=== PATIENT | female | born 1990 | race Caucasian/White ===

== ENCOUNTER 2018-10-18 09:22 | Emergency (ER) | payer MEDICAID, SELFPAY ==
[2018-10-18 09:34] VITALS: BP 102/69; PULSE 94; RESP 14; TEMP 36.7; O2SAT 98
--- NOTE | 2018-10-18 10:13 | ED.GENADUL_ITS ---
Discharge Plan Disposition Patient Disposition: HOME Condition: Stable Discharge Details Chief Complaint: Nk/Back Pain Clinical Impression: Viral syndrome Primary Care Provider: Natividad Kirkland ED Provider: Urvashi Richards Home Meds and New Rx's Prescriptions: Continued Ventolin HFA 200 PUFF HFA aerosol inhaler 2 puff Inhalation Q4H PRN PRNRF: 0 Discharge Instructions Instructions: Viral Syndrome (ED) Additional Instructions: Drink plenty of fluids and get plenty of rest. Alternate Tylenol and Motrin as needed and directed for pain. Follow-up with a primary care doctor in 1 week for reevaluation. Return immediately to the emergency department any worsening or new concerning symptoms. Stand Alone Forms: Work Release Discharge Data Discharge Date/Time-TO BE ENTERED AT DEPARTURE: 10/18/18 11:28 Discharge Physician: Urvashi Richards Medical Decision Making 28-year-old female with a history of asthma who presents with flulike symptoms for the past 3 days. Main complaint is body aches. Vitals within normal limits. Patient appears nontoxic and in no acute distress. No meningeal signs. No focal deficits. Normal ENT exam. Lungs clear to auscultation. Abdomen soft and nontender. States she is mainly concerned about the flu she has had many recent sick contacts. Will obtain a rapid influenza. No physical exam signs consistent with strep pharyngitis and I do not see any indication for rapid strep test. She again appears nontoxic, without fever or meningeal signs and with normal vitals, so I do not see any evidence of exam findings consistent with meningitis. 1100 --rapid influenza negative. Patient requests work note for today. Due to her viral symptoms, will give a work note to return Monday. Patient instructed on the importance of rest, fluids, Tylenol and Motrin. She is instructed to return here immediately if worse. Patient states she have menses due to history of endometrial ablation. Medical Records Medical records reviewed: Yes I reviewed the patient's medical records. Lab Data Lab results reviewed: Yes I reviewed the patient's lab results. Rapid influenza negative HPI General Mode of arrival: ambulatory . Date/Time Provider Initiated Documentation: 10/18/18 10:00 . Limitations to Documentation: no limitations . Information obtained by: patient . HPI Narrative: Patient is a 28-year-old female with history of asthma who presents with flulike symptoms for the past 3 days. States her symptoms started with sore throat, fatigue, dry cough, chest congestion, nausea, diarrhea, decreased appetite, intermittent bitemporal headache and mid to lower back pain 2 days ago, then left-sided neck pain started yesterday. Patient denies known fever, vomiting, chest pain, abdominal pain, urinary symptoms, rhinorrhea or ear pain. She has been taking Advil for her symptoms, with the last dose of 630 this morning. 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 States many people have tested positive for the flu. Patient states she did not receive a flu shot this year. Related Data Home Medications Medication Instructions Recorded Confirmed Ventolin HFA 2 puff INHALATION Q4H PRN PRN 11/24/17 10/18/18 Allergies Allergy/AdvReac Type Severity Reaction Status Date / Time No Known Allergies Allergy Unverified 10/18/18 09:42 General Stated Complaint: Nk/Back Pain CORRINA: 3 Review of Systems Review of Systems All systems reviewed & are unremarkable except as noted in HPI and below Constitutional Reports as per HPI, Denies chills and Denies fever(s) Eyes Denies blurry vision ENT Denies dizziness, Denies otalgia, Denies nasal congestion, Denies nasal discharge, Reports neck pain, Reports sore throat and Denies throat swelling Cardiovascular Denies chest pain and Denies dyspnea Respiratory Denies dyspnea Gastrointestinal Denies abdominal pain, Reports diarrhea, Reports nausea and Denies vomiting Genitourinary Denies hematuria and Denies dysuria Musculoskeletal Reports back pain, Reports neck pain and Denies numbness Integumentary/Breasts Denies lesions and Denies rash Neurologic Denies dizziness and Denies numbness Allergic/Immunologic Denies throat swelling [facility] Medical History Asthma (Chronic) Surgical History History of bilateral tubal ligation (Acute) History of endometrial ablation (Acute) H/O section (Chronic) Hx of cholecystectomy (Chronic) Social History Smoking/Tobacco Use Status: Current every day alcohol intake: current alcohol intake frequency: holidays/special occasions only substance use type: does not use Exam Const General: cooperative and healthy appearing Orientation: alert and awake HENMT Head: normal to inspection Ears: hearing grossly normal bilaterally, external ears normal and TM's normal bilaterally General nose exam: external nose normal Face and sinus: normal facial exam and sinuses nontender Mouth: oral mucosae normal Teeth and gingiva: dentition normal Throat: posterior oropharynx normal Eyes General: appearance normal, both eyes and all related structures Eyelids: eyelids normal Pupils: PERRL EOM: EOM intact bilaterally Neck Neck: normal visual inspection Lymphatic: no lymphadenopathy noted Chest Chest: normal inspection of the chest Resp Effort & Inspection: normal respiratory effort and able to speak in complete sentences Auscultation: clear to auscultation bilaterally Cardio Rate: regular rate Rhythm: regular rhythm GI Inspection: normal to inspection Palpation: soft, not firm, no guarding, no hepatosplenomegaly, no masses and nontender Auscultation: normal bowel sounds Back/Spine/Pelvis Back: no CVA tenderness Cervical Spine: cervical muscular tenderness (L sided) and No cervical spinal tenderness Thoracic/Lumbar Spine: No thoraco-lumbar spasm, No thoracic spinal tenderness and No lumbar spinal tenderness Skin General skin exam: no rashes or lesions noted Neuro General: alert, awake, moves all extremities, no meningeal signs and other (Negative Kernig's/Brudzinski's sign bilaterally) Cognition: normal cognition Speech: speech normal Gait: normal gait Motor: muscle tone normal throughout Sensory Exam: no sensory deficits noted Extrem General: normal to inspection, full ROM and normal capillary refill Psych Appearance: grossly normal Mental Status: mental status grossly normal Speech and Movement: speech and movement normal Affect: normal affect Thought Process: normal Course Vital Signs Temperature 98.1 F 10/18/18 09:34 Pulse 94 H 10/18/18 09:34 Respiratory Rate 14 10/18/18 09:34 Blood Pressure 102/69 10/18/18 09:34 Pulse Oximetry 98 10/18/18 09:34 Temperature 98.1 F 10/18/18 09:34 Temperature Source Skin 10/18/18 09:34 Pulse 94 H 10/18/18 09:34 Respiratory Rate 14 10/18/18 09:34 Respiratory Effort 10/18/18 09:43 Blood Pressure 102/69 10/18/18 09:34 Blood Pressure Position Sitting 10/18/18 09:34 Pulse Oximetry 98 10/18/18 09:34 Oxygen Delivery Method Room Air 10/18/18 09:34 Oxygen Flow Rate 0 10/18/18 09:34 Pain Level 6 10/18/18 09:34
== END 2018-10-18 11:28 | disposition home or self-care (01) ==
PROVIDERS: Emergency Provider Physician Assistant; PCP Nurse Practitioner Family
DX: B34.9 Viral infection, unspecified (principal); J45.909 Unspecified asthma, uncomplicated
CPT/HCPCS: 87449; 99282

== ENCOUNTER 2021-06-29 20:10 | Outpatient (REF) | payer SELFPAY ==
[2021-07-01 11:56] LABS: COVID-19 RT-PCR UVMMC Result Negative (Negative)
== END 2021-06-29 20:11 | disposition home or self-care (01) ==
LOC: NCHCN 20:10
PROVIDERS: PCP Nurse Practitioner Family; Visit Provider Physician Assistant
DX: J02.9 Acute pharyngitis, unspecified (principal); R05 Cough; Z20.822 Contact with and (suspected) exposure to COVID-19
CPT/HCPCS: U0003; 87070

== ENCOUNTER 2022-05-28 10:58 | Emergency (ER) | payer SELFPAY ==
[2022-05-28 11:05] VITALS: BP 133/95; PULSE 80; RESP 18; O2SAT 100
--- NOTE | 2022-05-28 12:00 | DI.RAD_ITS ---
Exam(s) XR FOOT LT COMPLETE EXAM: XR FOOT LT COMPLETE CLINICAL HISTORY: Plantar puncture wound TECHNIQUE: COMPARISON: CR LEFT FOOT COMPLETE from 10/31/2010 FINDINGS: Three views were obtained. No fracture or foreign body identified. IMPRESSION: RADIATION DOSE DELIVERED: Total DLP
--- NOTE | 2022-05-28 12:07 | ED.GENADUL_ITS ---
Discharge Plan Disposition Patient Disposition: HOME Condition: Stable Discharge Details Clinical Impression: Puncture wound of foot, left Primary Care Provider: Natividad Kirkland ED Provider: Hector Rodriguez Home Meds and New Rx's Prescriptions: New cephalexin 500 mg tablet 500 mg PO QID 5 Days Qty: 20 0RF Continued albuterol sulfate [Ventolin HFA] 200 PUFF HFA aerosol inhaler 2 puff Inhalation Q4H PRN PRN Discontinued benzonatate [Tessalon Perles] 100 mg capsule 100 mg PO TID PRN (Reason: cough) Qty: 14 0RF Discharge Instructions Instructions: Puncture Wound (ED) Additional Instructions: As discussed at this time there is no radiological evidence of bony involvement. At this time I do not see any signs of infection but you are at high risk of developing this so he was encouraged to continue to monitor symptoms over the next 24 to 48 hours and for any worsening of symptoms even slight start the antibiotic and take for the full course of medication. If you develop any new or significant worsening of symptoms please return immediately to the emergency department for reassessment. If not seeing signs of improvement over the next week please follow-up with your primary care provider for reassessment. Stand Alone Forms: Work Release Referrals: Natividad Kirkland [Primary Care Provider] - 1 week (As needed for reassessment or if not improving) Discharge Data Discharge Date/Time-TO BE ENTERED AT DEPARTURE: 05/28/22 13:12 Medical Decision Making 3 days ago patient stepped on a nail while at work. Denies any worsening symptoms but does state continued swelling pain with movement and pain with ambulation. Denies any other injury or trauma. Physical exam shows a puncture wound to the plantar aspect of the left foot mainly at the distal aspect of the second metatarsal. Exam otherwise unremarkable. We will plan on performing radiological imaging to this area. No obvious signs of infection at this point but possible infection is considered. Pending radiological imaging will give patient analgesia. Patient denies any chance of at this time Is unremarkable for any acute foreign body or bony involvement. Still pending radiologist interpretation I reassessed the patient and patient states some improvement of discomfort after ketorolac injection. We will plan on prescribing patient Keflex but given no obvious signs of infection at this time we will have patient hold medication for the next 24 to 48 hours to continue to monitor symptoms, perform Epson salt foot soaks, and keep foot elevated and off foot is much as possible. Discussed thoroughly return and follow-up precautions along of any symptoms that would require her to start antibiotics sooner. After discussion of diagnosis and plan of care patient has no further needs, questions, or concerns and states clear understanding to return to the emergency department for any worsening symptoms. This documentation was generated using [employer] dictation system, please disregard any oddities of phrase or misspellings. Imaging Data Radiologic Study: Imaging: X-Ray Radiologist's impression: FINDINGS: Bones/joints: Normal. Soft tissues: Normal. IMPRESSION: No acute findings. HPI General Mode of arrival: ambulatory . Date/Time Provider Initiated Documentation: 05/28/22 11:49 . Limitations to Documentation: no limitations . Information obtained by: patient and RN notes reviewed . History of Present Illness 31 year old F presents to the emergency department with the chief complaint of Puncture wound, described as moderate, with intensity rated at 7. Quality is described as aching, and is localized to the left and lower extremity. Patient reports no radiation. Patient started experiencing this day(s) (2) and it has been constant. No relieving factors improve symptom(s), No exacerbating factors reported . Patient notes no other symptoms.. Patient did receive the following treatments prior to arrival, NSAID and other (Epson salt foot soaks) Related Data Home Medications Medication Instructions Recorded Confirmed albuterol sulfate 90 mcg/actuation 2 puff inhalation Q4H PRN PRN 11/24/17 06/29/21 aerosol inhaler (Ventolin HFA) cephalexin 500 mg tablet 500 mg PO QID 5 days #20 tabs 05/28/22 Previous Rx's Medication Instructions Recorded cephalexin 500 mg tablet 500 mg PO QID 5 days #20 tabs 05/28/22 Allergies Allergy/AdvReac Type Severity Reaction Status Date / Time No Known Allergies Allergy Unverified 06/29/21 16:48 General Stated Complaint: Laceration CORRINA: 4 Review of Systems Narrative: 6 systems reviewed and unremarkable except what is marked below. Musculoskeletal Musculoskeletal: Reports as per HPI, Denies numbness and Denies tingling Integumentary/Breasts Skin/Breast: Reports as per HPI and Reports wounds Neurologic Neurologic: Denies numbness and Denies tingling PFSH All Active Problems (Updated 05/28/22 @ 12:59 by Hector Rodriguez NP) Puncture wound of foot, left (Acute) URI, acute (Acute) Sinusitis (Acute) Bronchitis (Acute) Medical History (Updated 05/28/22 @ 12:59 by Hector Rodriguez NP) Asthma Surgical History H/O section History of bilateral tubal ligation History of endometrial ablation Hx of cholecystectomy Social History Smoking/Tobacco Use Status: Current every day Tobacco Type: e-cigarettes Smoking risk assessment performed?: Yes Alcohol Intake: current Alcohol Intake frequency: holidays/special occasions only Drug use: Never Substance use type: does not use Do you feel safe in your relationship?: Yes Exam Const General: cooperative, no acute distress and not ill appearing Orientation: alert, awake and oriented x3 Resp Effort & Inspection: normal respiratory effort, able to speak in complete sentences and no respiratory distress Cardio Rate: regular rate Rhythm: regular rhythm Pulses: normal peripheral pulses Skin General skin exam: no rashes or lesions noted Neuro General: patient alert, patient awake, patient oriented x3, moves all extremities and no focal motor deficits Sensory Exam: no sensory deficits noted Extrem General: normal exam except as noted Left lower extremity: foot Details: puncture wound plantar distal Details: single Ankle/foot/toe images: 1. Puncture wound Course Vital Signs Vital signs: Vital Signs Pulse 80 05/28/22 11:05 Respiratory Rate 18 05/28/22 11:05 Blood Pressure 133/95 H 05/28/22 11:05 Pulse Oximetry 100 05/28/22 11:05 Temperature Source Temporal Artery Scan 05/28/22 11:05 Pulse 80 05/28/22 11:05 Respiratory Rate 18 05/28/22 11:05 Blood Pressure 133/95 H 05/28/22 11:05 Blood Pressure Position Sitting 05/28/22 11:05 Pulse Oximetry 100 05/28/22 11:05 Pain Level 7 05/28/22 11:05
[2022-05-28] MEDS: Ketorolac 30 MG/ML VIAL IM (12:24)
--- NOTE | 2022-05-28 13:00 | DI.VRAD_ITS ---
PROCEDURE INFORMATION: Exam: XR Left Foot Exam date and time: 05/28/2022 12:30 PM Age: 31 years old Clinical indication: Pain; Foot; Left; Patient HX: Plantar puncture wound TECHNIQUE: Imaging protocol: Radiologic exam of the Left foot. Views: 3 or more views. COMPARISON: CR LEFT FOOT COMPLETE 11/24/2017 8:49 AM FINDINGS: Bones/joints: Normal. Soft tissues: Normal. IMPRESSION: No acute findings. Dictated and Authenticated by: Suzanne Maya MD. Ordering:JAMILA Young MD
== END 2022-05-28 13:12 | disposition home or self-care (01) ==
PROVIDERS: Emergency Provider Nurse Practitioner Family; PCP Nurse Practitioner Family
DX: S91.332A Puncture wound without foreign body, left foot, initial encounter (principal); W45.0XXA Nail entering through skin, initial encounter; Y99.0 Civilian activity done for income or pay; F17.290 Nicotine dependence, other tobacco product, uncomplicated
CPT/HCPCS: 96372; 99284; 73630; J1885

== ENCOUNTER 2022-11-24 08:43 | Emergency (ER) | payer SELFPAY ==
[2022-11-24 08:47] VITALS: BP 99/71; PULSE 96; RESP 20; TEMP 36.7; O2SAT 97
--- NOTE | 2022-11-24 09:01 | ED.GENADUL_ITS ---
Discharge Plan Disposition Patient Disposition: Home Condition: Improving Discharge Details Clinical Impression: Gastroenteritis Primary Care Provider: ELIZABETH MONTES ED Provider: Hector Rodriguez Home Meds and New Rx's Prescriptions: New ondansetron 4 mg tablet,disintegrating 4 mg PO Q6H PRN (Reason: nausea and vomiting) Qty: 10 0RF Continued albuterol sulfate [Ventolin HFA] 200 PUFF HFA aerosol inhaler 2 puff Inhalation Q4H PRN PRN Discharge Instructions Instructions: Gastroenteritis (ED) Additional Instructions: You may slowly advance your diet as tolerated. Take antinausea medication as prescribed and only if needed for increased nausea or vomiting. Please stay well-hydrated. If you develop any new or significant worsening of symptoms such as return of fever chills, focal or worsening abdominal pain, blood in stool or vomit feel free to return to the emergency department for reassessment. Otherwise if not improving in the next week follow-up with your primary care provider for recheck of your symptoms Stand Alone Forms: Work Release Referrals: ELIZABETH MONTES, DOCUMENTATION CONSULTANT [Primary Care Provider] - 1 week (As needed for reassessment) Medical Decision Making Patient presenting to the emergency department for chief complaint of nausea vomiting. She states that this started 4 days ago upon waking up in the morning. Patient states subjective fever and chills for the first 24 hours which has resolved but then has had persistent nausea and vomiting. She has not vomited this morning but has persistent belching. States crampy abdominal pain but no focal findings, denies any urinary, pelvic, vaginal symptoms. Does state some loose stools but denies persistent diarrhea denies any blood in stool or vomit. Physical exam shows normal cardiac and respiratory exam, normal HEENT exam, diffuse nonfocal abdominal tenderness with soft abdomen and no peritoneal findings. Patient has had multiple C-sections, tubal ligation, operative endometriosis procedure, and cholecystectomy. Given that patient is not tender over the right lower quadrant and diffuse symptoms I doubt that patient has surgical abdomen and symptoms along with exam finding is not clinically consistent with this at this time. We will plan on checking labs and urinalysis along with giving patient antiemetics and fluids for suspected dehydration and potential electrolyte abnormalities. 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 We will hold off on advanced imaging at this time until results have returned. Reviewed patient's labs which show no significant leukocytosis or shift, CMP shows slightly elevated anion gap at 11.3, AST low at 14 alk phos low at 37 normal lipase all other CMP is within normal limits. Urinalysis did show trace protein and blood with small amount of urobilinogen but no signs of infection . Patient reassessed and states significant improvement of abdominal tenderness, nausea, and states feeling better. Given improved symptoms and reassessment do feel that we can continue to hold off on any advanced imaging. Will prescribe patient Zofran to use at home as needed I did discuss return and follow-up precautions. After discussion of diagnosis and plan of care patient has no further needs, questions, or concerns and states clear understanding to return to the emergency department for any worsening symptoms. This documentation was generated using [employer] system, please disregard any oddities of phrase or misspellings. Lab Data Lab results reviewed: Yes I reviewed the patient's lab results. HPI General Mode of arrival: ambulatory . Date/Time Provider Initiated Documentation: 11/24/22 08:45 . Limitations to Documentation: no limitations . Information obtained by: patient and RN notes reviewed . History of Present Illness 32 year old F presents to the emergency department with the chief complaint of Nausea vomiting with abdominal cramping, described as moderate, with intensity rated at 6. Quality is described as aching, and is localized to the abdomen. Patient reports no radiation. Patient started experiencing this day(s) (4) and it has been constant. No relieving factors improve symptom(s), No exacerbating factors reported . Patient notes no other symptoms.. Patient did receive the following treatments prior to arrival, other (Attempted tums) Related Data Home Medications Medication Instructions Recorded Confirmed albuterol sulfate 90 mcg/actuation 2 puff inhalation Q4H PRN PRN 11/24/17 11/24/22 aerosol inhaler (Ventolin HFA) ondansetron 4 mg disintegrating 4 mg PO Q6H PRN nausea and 11/24/22 tablet vomiting #10 tabs Previous Rx's Medication Instructions Recorded ondansetron 4 mg disintegrating 4 mg PO Q6H PRN nausea and 11/24/22 tablet vomiting #10 tabs Allergies Allergy/AdvReac Type Severity Reaction Status Date / Time No Known Allergies Allergy Unverified 11/24/22 08:52 General Stated Complaint: Abd Prob CORRINA: 3 Review of Systems Constitutional Constitutional: Denies chills, Denies fever(s) and Reports poor appetite Cardiovascular Cardiovascular: Denies chest pain and Denies dyspnea Respiratory Respiratory: Denies cough and Denies dyspnea Gastrointestinal Gastrointestinal: Reports as per HPI, Reports abdominal pain, Denies melena, Denies hematochezia, Denies change in bowel habits, Denies constipation, Denies diarrhea, Reports loose stools, Reports nausea, Reports vomiting and Denies hematemesis Genitourinary Genitourinary: Denies hematuria, Denies pelvic pain, Denies urinary urgency and Denies vaginal discharge Integumentary/Breasts Skin/Breast: Denies rash PFSH All Active Problems (Updated 11/24/22 @ 10:38 by Hector Rodriguez NP) Gastroenteritis (Acute) URI, acute (Acute) Sinusitis (Acute) Bronchitis (Acute) Medical History (Updated 11/24/22 @ 10:38 by Hector Rodriguez NP) Asthma Surgical History H/O section History of bilateral tubal ligation History of endometrial ablation Hx of cholecystectomy Social History Smoking/Tobacco Use Status: Current every day Tobacco Type: e-cigarettes Smoking risk assessment performed?: Yes Alcohol Intake: current Alcohol Intake frequency: holidays/special occasions only Drug use: Never Substance use type: does not use Do you feel safe at home: Yes Do you feel safe in your relationship?: Yes Female Reproductive History Menstrual control method: permanent sterilization (Tubal ligation) Exam Const General: cooperative Orientation: alert, awake and oriented x3 Resp Effort & Inspection: normal respiratory effort and able to speak in complete sentences Auscultation: clear to auscultation bilaterally Cardio Rate: regular rate Rhythm: regular rhythm Heart Sounds: S1 normal and S2 normal GI Inspection: normal to inspection Palpation: soft, no hepatosplenomegaly, not firm, no guarding, no masses, no pulsatile masses, not rigid, no splenomegaly and tender (Diffuse nonfocal) not at McBurney's point, Stock's sign negative, psoas sign negative, with no rebound tenderness and Rovsing's sign negative Auscultation: normal bowel sounds Back/Spine/Pelvis Back: no CVA tenderness Neuro General: patient alert, patient awake, patient oriented x3, gait normal and moves all extremities Course Vital Signs Vital signs: Vital Signs Temperature 36.7 C 11/24/22 08:47 Pulse 96 H 11/24/22 08:47 Respiratory Rate 20 11/24/22 08:47 Blood Pressure 99/71 L 11/24/22 08:47 Pulse Oximetry 97 11/24/22 08:47 Temperature 36.7 C 11/24/22 08:47 Temperature Source Oral 11/24/22 08:47 Pulse 96 H 11/24/22 08:47 Respiratory Rate 20 11/24/22 08:47 Respiratory Effort Normal, Non-Labored, Short of Breath 11/24/22 08:51 Blood Pressure 99/71 L 11/24/22 08:47 Blood Pressure Position Sitting 11/24/22 08:47 Pulse Oximetry 97 11/24/22 08:47 Oxygen Delivery Method Room Air 11/24/22 08:47 Oxygen Flow Rate 0 11/24/22 08:47 Pain Level 6 11/24/22 08:47 PAWSS Have you Been Recently Intoxicated or Drunk Within the Last 30 days?: No Have you Ever Experienced Previous Episodes of Alcohol Withdrawal?: No Have you ever Experienced Withdrawal Seizures?: No Have you ever Experienced Delirium Tremens(DT)s?: No Have you ever undergone Alcohol Rehabilitation Treatment (i.e, inpt ot outpatient treatment programs)?: No Have you ever Experienced Blackouts?: No Have you ever Combined Alcohol with other Downers within the last 90 days?: No Have you ever Combined Alcohol with any other Substance of Abuse during the last 90 days?: No Positive Blood Alcohol level on Presentation? [PCS.BAL]: No Evidence of Increased Autonomic Activity (i.e. HR>120, tremor, sweating, agitation, nausea)?: No Result: 0
[2022-11-24 09:19] LABS: Bilirubin Small (Negative); Blood Small (Negative); Clarity Clear (Clear); Glucose Negative (Negative); Ketones Negative (Negative); Leukocyte Esterase Negative (Negative); Nitrite Negative (Negative)
[2022-11-24] MEDS: Ondansetron 4 MG/2 ML VIAL IVP (09:26)
[2022-11-24] MEDS: Normal Saline 1,000 ML 1000 ML IV (09:26)
[2022-11-24 09:28] LABS: Bacteria Rare HPF (Negative); C & S Indicated? No; Casts 0-2 Hyaline LPF (Negative); Crystals Negative HPF (Negative); Epithelial Cells Moderate HPF (Negative); Mucus Moderate (Negative); WBC Negative HPF (0-5)
[2022-11-24 09:35] LABS: Abs Immature Grans 0.01 10^3/uL (0.0-0.06); Absolute Basophil Count 0.03 10^3/uL (0.0-0.2); Absolute Eosinophil Count 0.07 10^3/uL (0.0-0.7); Absolute Lymphocyte Count 1.19 10^3/uL (1.2-3.4); Absolute Monocyte Count 0.46 10^3/uL (0.1-0.8); Absolute Neutrophil Count 3.44 10^3/uL (1.2-6.7); Basophils % 0.6; Eosinophils % 1.3; HCT 41.9 % (36.0-46.0); Immature Grans % 0.2; Lymphocytes % 22.9; MCHC 33.4 % (32.0-36.0); MCV 87 fL (80-95); MPV 9.9 fL (8.0-11.0); Monocytes % 8.8; Neutrophils % 66.2; Platelet Count 254 10^3/uL (130-400); RBC 4.82 10^6/uL (3.93-5.22); RDW 11.9 % (11.7-14.6); RDW-SD 38.1 fL
[2022-11-24 09:45] LABS: Lipase 17 U/L (16-77); Magnesium 1.9 mg/dL (1.8-2.4)
[2022-11-24 09:51] LABS: ALT 18 U/L (14-59); AST 14 U/L (15-37); Albumin 4.1 g/dL (3.4-5.0); Alkaline Phosphatase 37 U/L (46-116); Anion Gap 11.3 mmol/L (3-11); BUN 10 mg/dL (7-18); CO2 26.7 mmol/L (21.0-32.0); CREATININE 0.7 mg/dL (0.55-1.02); Calcium 9.1 mg/dL (8.5-10.1); Chloride 102 mmol/L (98-107); Estimated GFR 117.04 (mL/min/1.73m2); Glucose 96 mg/dL (74-106); Potassium 3.6 mmol/L (3.5-5.1); Sodium 140 mmol/L (136-145); Total Protein 7.7 g/dL (6.4-8.2)
[2022-11-24 10:49] VITALS: BP 104/63; PULSE 62; TEMP 36.8; O2SAT 99
== END 2022-11-24 10:52 | disposition home or self-care (01) ==
PROVIDERS: Emergency Provider Nurse Practitioner Family; PCP Nurse Practitioner Family
DX: K52.9 Noninfective gastroenteritis and colitis, unspecified (principal)
CPT/HCPCS: 36415; 80053; 81025; 83690; 96361; 96374; 99284; 81003; 81015; 83735; 85025; J2405

== ENCOUNTER 2023-01-02 12:11 | Emergency (ER) | payer SELFPAY ==
[2023-01-02 12:23] VITALS: BP 103/54; PULSE 98; RESP 16; O2SAT 99
--- NOTE | 2023-01-02 12:42 | W.ED.GENAD ---
Discharge Plan Disposition Patient Disposition: Home Condition: Stable Discharge Details Clinical Impression: URI, acute Primary Care Provider: ELIZABETH MONTES ED Provider: Funmi Bueno Home Meds and New Rx's Prescriptions: New benzonatate 100 mg capsule 100 mg PO BID PRN (Reason: cough) Qty: 10 0RF Rx Instructions: Please take 1 capsule twice daily as needed for cough No Action ondansetron 4 mg tablet,disintegrating 4 mg PO Q6H PRN (Reason: nausea and vomiting) Qty: 10 0RF albuterol sulfate [Ventolin HFA] 200 PUFF HFA aerosol inhaler 2 puff Inhalation Q4H PRN PRN Discharge Instructions Instructions: Upper Respiratory Infection (ED) Additional Instructions: No evidence of strep throat or COVID or flu. Those were all negative. Please gargle with warm salt water up to 3 times daily as needed. You may take [id number] cough and cold medicines. Please take Tylenol or Ibuprofen with food every 4-6 hours as needed for pain and swelling. Follow up with primary care provider in 3-5 days. Return to ED sooner if any worsening or concerns. Increase oral fluids. Please take the cough medicine as directed. Stand Alone Forms: Work Release Referrals: ELIZABETH MONTES, [employer] [Primary Care Provider] - 3 days Discharge Data Discharge Date/Time-TO BE ENTERED AT DEPARTURE: 01/02/23 14:23 Medical Decision Making 32-year-old female presents to the ER with a chief complaint of URI type symptoms, nasal congestion cough and sore throat which has been ongoing for the next 5 days. 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 She does have a past medical history of endometrial ablation, cholecystectomy tubal ligation and . She also has a history of asthma. Lungs are clear to auscultation bilaterally. She does have a posterior oropharynx which is slightly erythemic, no visualized exudate. Rapid strep done by ER staff upon arrival. Strep negative, will send for culture. Rapid COVID and flu ordered. COVID and flu is negative, diet given Wilman Lora, diagnosed with URI. Instructed take [id number] cough and cold remedies. This text was generated using [employer] system, please disregard any oddities of phrase or misspellings. Lab Data Lab results reviewed: Yes I reviewed the patient's lab results. Labs: 01/02/23 12:29 Tonsil - Not Specified Group A Streptococcus Culture - Pending HPI General Mode of arrival: ambulatory. Date/Time Provider Initiated Documentation: 01/02/23 12:12. Limitations to Documentation: no limitations. Information obtained by: patient, RN notes reviewed and old records reviewed. HPI Narrative: 32-year-old female presents to the ER with a chief complaint of URI type symptoms, nasal congestion cough and sore throat which has been ongoing for the next 5 days. 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 She does have a past medical history of endometrial ablation, cholecystectomy tubal ligation and . She also has a history of asthma. Lungs are clear to auscultation bilaterally. She does have a posterior oropharynx which is slightly erythemic, no visualized exudate. Related Data Home Medications Medication Instructions Recorded Confirmed albuterol sulfate 90 mcg/actuation 2 puff inhalation Q4H PRN PRN 11/24/17 11/24/22 aerosol inhaler (Ventolin HFA) ondansetron 4 mg disintegrating 4 mg PO Q6H PRN nausea and 11/24/22 tablet vomiting #10 tabs benzonatate 100 mg capsule 100 mg PO BID PRN cough #10 caps 01/02/23 Previous Rx's Medication Instructions Recorded ondansetron 4 mg disintegrating 4 mg PO Q6H PRN nausea and 11/24/22 tablet vomiting #10 tabs benzonatate 100 mg capsule 100 mg PO BID PRN cough #10 caps 01/02/23 Allergies Allergy/AdvReac Type Severity Reaction Status Date / Time No Known Allergies Allergy Unverified 11/24/22 08:52 General Stated Complaint: Sorethroat CORRINA: 4 Review of Systems All systems reviewed & are unremarkable except as noted in HPI and below ENT Ears, Nose, Mouth, and Throat: Reports as per HPI, Reports nasal congestion, Reports nasal discharge and Reports sore throat Cardiovascular Cardiovascular: Denies chest pain and Denies dyspnea Respiratory Respiratory: Denies change in phlegm color, Reports cough, Denies hemoptysis and Denies dyspnea PFSH All Active Problems (Updated 01/02/23 @ 14:05 by Funmi Bueno NP) URI, acute (Acute) URI, acute (Acute) Sinusitis (Acute) Bronchitis (Acute) Medical History (Updated 01/02/23 @ 14:05 by Funmi Bueno NP) Asthma Surgical History H/O section History of bilateral tubal ligation History of endometrial ablation Hx of cholecystectomy Social History Smoking/Tobacco Use Status: Former Tobacco Use Smoking risk assessment performed?: Yes Alcohol Intake: current Alcohol Intake frequency: holidays/special occasions only Drug use: Never Substance use type: does not use Do you feel safe at home: Yes Do you feel safe in your relationship?: Yes Female Reproductive History Menstrual control method: permanent sterilization (Tubal ligation) Exam Narrative Exam Narrative: Constitutional: Alert and oriented x3. Appears stated age. Normal body habitus. Head: Normocephalic, no trauma. Eyes: Pupils PERRL, Red reflex noted, EOM's intact. Eyelids symmetrical without lesions, discharge, or swelling. ENT: Bilateral TM's WNL, External ear normal to inspection, no mastoid TTP, swelling, or erythema, Nasal turbinates boggy no nasal discharge. Normal dentition, Posterior pharynx erythemic, no visualized exudate, uvula midline. Tonsils 2+ bilaterally. Chest: RRR, Normal S1, S2, distal pulses intact. Resp: Lungs clear to auscultation bilaterally, no wheezes, rales, or rhonchi. Abdomen: Soft, non-distended, Normoactive bowel sounds all 4 quads. Musculoskeletal: Normal gait, 5/5 strength to all four extremities. Skin: No suspicious rashes or lesions. Capillary refill less than 2 sec. Hematologic/Lymphatic: No ecchymosis, no lymphadenopathy. Course Vital Signs Vital signs: Vital Signs Pulse 98 H 01/02/23 12:23 Respiratory Rate 16 01/02/23 12:23 Blood Pressure 103/54 L 01/02/23 12:23 Pulse Oximetry 99 01/02/23 12:23 Pulse 98 H 01/02/23 12:23 Respiratory Rate 16 01/02/23 12:23 Respiratory Effort Normal 01/02/23 12:30 Blood Pressure 103/54 L 01/02/23 12:23 Blood Pressure Position Sitting 01/02/23 12:23 Pulse Oximetry 99 01/02/23 12:23 Oxygen Delivery Method Room Air 01/02/23 12:23 Oxygen Flow Rate 0 01/02/23 12:23 Pain Level 8 01/02/23 12:23
[2023-01-02] MEDS: Benzonatate 100 MG CAP PO ×2 (13:49)
[2023-01-02 14:19] VITALS: BP 105/66; PULSE 66; RESP 16; O2SAT 100
== END 2023-01-02 14:23 | disposition home or self-care (01) ==
PROVIDERS: Emergency Provider Registered Nurse Emergency; PCP Nurse Practitioner Family
DX: J06.9 Acute upper respiratory infection, unspecified (principal)
CPT/HCPCS: 87426; 87880; 99283; 87081

== ENCOUNTER 2024-11-07 15:54 | Outpatient (REF) | payer MEDICAID, SELFPAY | END 2024-11-07 15:55 | disposition home or self-care (01) | LOC: LBN 15:54 | PROVIDERS: PCP Nurse Practitioner Family; Visit Provider Physician Assistant Medical | DX: J02.9 Acute pharyngitis, unspecified (principal) | CPT/HCPCS: 87070 ==